=== PATIENT | female | born 1940 | race Caucasian/White ===

== ENCOUNTER 2016-04-05 08:38 | Emergency (ER) | payer OTHER ==
[~2016-04-05] VITALS: Ht 167.6 cm; Wt 74.8 kg
[2016-04-05 08:41] VITALS: BP 155/68; PULSE 80; RESP 16; TEMP 98; O2SAT 95
--- NOTE | 2016-04-05 08:50 | NUR ---
Placed in room 5 To gown for exam. Side rails up.
[2016-04-05] MEDS ORDERED: PHEN100C4 (08:53)
[2016-04-05] MEDS ORDERED: GABA-331 (08:53)
--- NOTE | 2016-04-05 08:53 | NUR ---
pt slipped and fell on last Sunday,c/o back pain. pt A&O x4 ,ambulatory, left side back tenderness.
--- NOTE | 2016-04-05 08:53 | NUR ---
ER at bedside examining patient.
--- NOTE | 2016-04-05 08:54 | NUR ---
Endorsed care to Krystle HUERTA.
[2016-04-05 09:30] VITALS: BP 140/70; PULSE 80; RESP 16; TEMP 98; O2SAT 95
--- NOTE | 2016-04-05 09:32 | NUR ---
Patient given written and verbal discharge instructions and verbalizes understanding. ER MD discussed with patient the results and treatment provided. Patient in stable condition. ID arm band removed. Rx of x 2 norco and lactulose given. Patient educated on pain management and to follow up with PMD. Pain Scale [3/10]. Opportunity for questions provided and answered.
== END 2016-04-05 09:30 | disposition home or self-care (01) ==
LOC: SED 08:38
DX: M54.5 Low back pain (principal); I10 Essential (primary) hypertension
CPT/HCPCS: 99283

== ENCOUNTER 2016-05-01 05:32 | Emergency (ER) | payer OTHER ==
[~2016-05-01] VITALS: Ht 165.1 cm; Wt 77.1 kg
[2016-05-01 05:32] VITALS: BP 188/90; PULSE 68; RESP 20; TEMP 96.9; O2SAT 98
[~2016-05-01 05:32] MED LIST: GABA-331; PHEN100C4
--- NOTE | 2016-05-01 05:35 | NUR ---
Placed in room 07 . Placed on shop blacksmith, blood pressure machine and pulse oximeter. To gown for exam. Side rails up. Report given to BRADLEY Bond.
--- NOTE | 2016-05-01 05:40 | NUR ---
[facility] C/O RIGHT HIP PAIN . DR DARRYL MALONE.
--- NOTE | 2016-05-01 05:56 | NUR ---
ER at bedside examining patient.
[2016-05-01] MEDS ORDERED: ACETAMINOPHEN/CODEINE 300 MG-30 MG TABLET PO ONE (06:15)
--- NOTE | 2016-05-01 07:10 | NUR ---
Assumed care, pt on bedpan for urine specimen collection. Pt having difficulty voiding per report. Pt unable to tolerate straight cath. Continuing to monitor.
[2016-05-01 07:15] LABS: BASOPHILS % (AUTO) 0.1 % (0.0-2.0); EOSINOPHILS # (AUTO) 0.3 K/uL (0.0-0.4); EOSINOPHILS % (AUTO) 2.4 % (0.0-4.0); HEMATOCRIT 32.3 % (36-48); HEMOGLOBIN 10.5 g/dL (12.0-16.0); LYMPHOCYTES # (AUTO) 1.1 K/uL (1.0-5.5); LYMPHOCYTES % (AUTO) 9.7 % (20.5-51.5); MEAN CORPUSCULAR HEMOGLOBIN 28 pg (27-31); MEAN CORPUSCULAR HGB CONC 33 % (32-36); MEAN CORPUSCULAR VOLUME 85 fL (79.0-98.0); MONOCYTES # (AUTO) 0.6 K/uL (0.0-1.0); MONOCYTES % (AUTO) 5.3 % (1.7-9.3); NEUTROPHILS # (AUTO) 9.6 K/uL (1.8-7.7); NEUTROPHILS % (AUTO) 82.5 % (40.0-70.0); PLATELET COUNT (AUTO) 225 K/uL (130-430); RED BLOOD CELL COUNT(AUTO) 3.82 MIL/uL (4.2-6.2); RED CELL DISTRIBUTION WIDTH 15.1 % (9.0-15.0); WHITE BLOOD COUNT (AUTO) 11.6 K/uL (4.8-10.8)
[2016-05-01 07:23] LABS: ANION GAP 8 (5-15); CALCIUM 9.2 mg/dL (8.4-11.0); CHLORIDE 104 mmol/L (98-107); CREATININE 1.34 mg/dL (0.55-1.30); GLUCOSE 93 mg/dL (70-99); POTASSIUM 4.4 mmol/L (3.5-5.1); SODIUM SERUM 138 mmol/L (136-145); UREA NITROGEN, BLOOD 35 mg/dL (8-21)
[2016-05-01 07:28] LABS: ALANINE AMINOTRANSFERASE 28 U/L (12-78); ALBUMIN 3.5 g/dL (3.4-4.8); ASPARTATE AMINOTRANSFERASE 29 U/L (10-37); TOTAL BILIRUBIN 0.2 mg/dL (0.0-1.0)
--- NOTE | 2016-05-01 07:30 | NUR ---
urine specimen collected sent to lab
[2016-05-01 07:33] LABS: PROTHROMBIN TIME 10.5 SECS (9.5-12.5)
--- NOTE | 2016-05-01 07:40 | NUR ---
# 22 gauge angiocath placed to LAC. Use of asceptic technique. Opsite placed over site. Blood return noted. Blood for lab drawn from site. Flushed with 10 cc of normal saline. No evidence of infiltration noted. Patient tolerated well.
[2016-05-01 07:41] LABS: BILIRUBIN,URINE NEGATIVE (NEGATIVE); BLOOD, URINE 1+ (NEGATIVE); CLARITY/URINE CLEAR (CLEAR); COLOR,URINE YELLOW (YELLOW); GLUCOSE,URINE NEGATIVE (NEGATIVE); KETONES,URINE NEGATIVE (NEGATIVE); LEUKOCYTE ESTERASE ,URINE TRACE (NEGATIVE); NITRITE, URINE NEGATIVE (NEGATIVE); PH,URINE 5.5 (5.0-8.0); PROTEIN URINE NEGATIVE (NEGATIVE); UROBILINOGEN,URINE 0.2 (0.2-1.0)
--- NOTE | 2016-05-01 07:51 | NUR ---
Patient transported to radiology via gurney, accompanied by rad staff.
[2016-05-01] MEDS ORDERED: cefTRIAXone 1 GM IVPB PREMIX 50 ML IV ONE (08:15)
--- NOTE | 2016-05-01 08:15 | NUR ---
Pt returned from rad dept. Pt tolerated well.
[2016-05-01 08:28] LABS: BACTERIA,URINE FEW /HPF (None Seen); MUCUS,URINE 1+ /LPF (None Seen)
[2016-05-01] MEDS ORDERED: ONDANSETRON 4 MG ODT TAB PO ONE (08:30)
[2016-05-01] MEDS ORDERED: MORPHINE 2 MG/ML INJ. SYRINGE IVP ONE ×2 (08:30→13:30)
--- NOTE | 2016-05-01 08:33 | NUR ---
Pt medicated tolerated well.
[2016-05-01] MEDS ORDERED: ZOLP5TAB2 PO (09:15)
[2016-05-01] MEDS ORDERED: HYDR25TA4 PO (09:16)
[2016-05-01] MEDS ORDERED: CEL20 PO (09:16)
--- NOTE | 2016-05-01 09:30 | NUR ---
Pt's son at bedside w/ Dr. Yarbrough for POC.
--- NOTE | 2016-05-01 09:50 | NUR ---
Pt unable to tolerate standing. Dr. Yarbrough aware.
--- NOTE | 2016-05-01 10:15 | NUR ---
Pt to be transferred to [facility] awaiting call back for room assignment.
[2016-05-01] MEDS ORDERED: ZONI100C16 PO (11:30)
[2016-05-01] MEDS ORDERED: TEMA15CA51 PO (11:30)
--- NOTE | 2016-05-01 12:15 | NUR ---
[facility] awaiting transfer info for report.
--- NOTE | 2016-05-01 13:20 | NUR ---
Pt given afternoon tray .
--- NOTE | 2016-05-01 13:24 | NUR ---
Pt on stable condition, VSS, resting at this time
[2016-05-01] MEDS ORDERED: ONDANSETRON HCL 4 MG/2 ML VIAL IVP ONE (13:30)
--- NOTE | 2016-05-01 13:35 | NUR ---
Patient to be transferred to [facility]. Is being transferred due to higher level of care. Receiving facility has accepting physician and available space. ER physician has signed transfer form. Patient or responsible republican has agreed to transfer and signed form. Patient belongings inventoried and will be sent with patient. Copy of nursing notes, lab reports, EKG, Physicians Orders and X-rays to be sent with patient. Report called to strategy consultant at receiving facility. Receiving physician is . [facility] has been called for transfer. ETA is [id number].
[2016-05-01 14:15] VITALS: BP 169/88; PULSE 65; RESP 18; TEMP 97.4; O2SAT 97
== END 2016-05-01 14:15 | disposition home or self-care (01) ==
LOC: SED 05:32
DX: M54.5 Low back pain (principal); D64.9 Anemia, unspecified; I10 Essential (primary) hypertension; K21.9 Gastro-esophageal reflux disease without esophagitis; Z86.79 Personal history of other diseases of the circulatory system; Z88.8 Allergy status to other drugs, medicaments and biological substances
CPT/HCPCS: 36415; 70450; 71010; 72131; 72170; 72192; 73510; 80053; 81000; 84484; 85025; 85610; 87086; 93005; 96365; 96375; 96376; 99285; J0696; J2270; J2405; Q0162

== ENCOUNTER 2016-08-17 18:04 | Inpatient (IN) | payer OTHER ==
[~2016-08-17] VITALS: Ht 170.2 cm; Wt 70.8 kg
[2016-08-17 18:04] VITALS: BP_SYST 149
[~2016-08-17 18:04] MED LIST changes: +CEL20 PO; -GABA-331; +HYDR25TA4 PO; -PHEN100C4; +TEMA15CA51 PO; +ZOLP5TAB2 PO; +ZONI100C16 PO
[2016-08-17 18:22] LABS: BASOPHILS % (AUTO) 0.4 % (0.0-2.0); EOSINOPHILS # (AUTO) 0.3 K/uL (0.0-0.4); LYMPHOCYTES # (AUTO) 2.1 K/uL (1.0-5.5); MEAN CORPUSCULAR VOLUME 72 fL (79.0-98.0); NEUTROPHILS # (AUTO) 4.3 K/uL (1.8-7.7)
[2016-08-17 18:25] LABS: EOSINOPHILS % (AUTO) 3.9 % (0.0-4.0); LYMPHOCYTES % (AUTO) 28.3 % (20.5-51.5); MEAN CORPUSCULAR HEMOGLOBIN 22 pg (27-31); MEAN CORPUSCULAR HGB CONC 31 % (32-36); MONOCYTES # (AUTO) 0.7 K/uL (0.0-1.0); MONOCYTES % (AUTO) 9.2 % (1.7-9.3); NEUTROPHILS % (AUTO) 58.2 % (40.0-70.0); PLATELET COUNT (AUTO) 510 K/uL (130-430); RED BLOOD CELL COUNT(AUTO) 2.87 MIL/uL (4.2-6.2); WHITE BLOOD COUNT (AUTO) 7.4 K/uL (4.8-10.8)
[2016-08-17 18:27] LABS: HEMOGLOBIN 6.4 g/dL (12.0-16.0)
[2016-08-17 18:28] LABS: HEMATOCRIT 20.7 % (36-48)
[2016-08-17 18:34] LABS: INR 0.9 (0.8-1.2); PROTHROMBIN TIME 10.3 SECS (9.5-12.5)
[2016-08-17 18:45] LABS: ANION GAP 8 (5-15); CALCIUM 8.8 mg/dL (8.4-11.0); CHLORIDE 105 mmol/L (98-107); CREATININE 1.44 mg/dL (0.55-1.30); GLUCOSE 84 mg/dL (70-99); POTASSIUM 4.4 mmol/L (3.5-5.1); SODIUM SERUM 137 mmol/L (136-145); UREA NITROGEN, BLOOD 30 mg/dL (8-21)
[2016-08-17 18:50] LABS: ALANINE AMINOTRANSFERASE 15 U/L (12-78); ALBUMIN 3.5 g/dL (3.4-4.8); ASPARTATE AMINOTRANSFERASE 17 U/L (10-37); TOTAL BILIRUBIN 0.2 mg/dL (0.0-1.0); TOTAL PROTEIN, SERUM 7.2 g/dL (6.4-8.3)
[2016-08-17] MEDS: CITALOPRAM HYDROBROMIDE 20 MG TABLET PO SCH (20:15)
[2016-08-17] MEDS ORDERED: TEMAZEPAM 15 MG CAPSULE PO SCH (20:15)
[2016-08-17] MEDS ORDERED: BENA20TA2 PO (20:26)
[2016-08-17 20:39] VITALS: BP_SYST 146
[2016-08-17] MEDS ORDERED: CITALOPRAM HYDROBROMIDE 20 MG TABLET PO ONE (22:00)
[2016-08-17] MEDS ORDERED: PANTOPRAZOLE SODIUM 40 MG TAB PO ONE (22:00)
[2016-08-17] MEDS: ZOLPIDEM TARTRATE 5 MG TABLET PO SCH (22:04)
[2016-08-17] MEDS: ZONISAMIDE 100 MG CAPSULE PO SCH (22:04)
[2016-08-18 00:02] VITALS: BP_SYST 132
[2016-08-18 03:04] VITALS: BP_SYST 121
[2016-08-18 07:45] LABS: BASOPHILS % (AUTO) 0.5 % (0.0-2.0); EOSINOPHILS # (AUTO) 0.3 K/uL (0.0-0.4); EOSINOPHILS % (AUTO) 4.7 % (0.0-4.0); HEMATOCRIT 29.1 % (36-48); HEMOGLOBIN 9.2 g/dL (12.0-16.0); LYMPHOCYTES # (AUTO) 1.5 K/uL (1.0-5.5); LYMPHOCYTES % (AUTO) 22.4 % (20.5-51.5); MEAN CORPUSCULAR HEMOGLOBIN 25 pg (27-31); MEAN CORPUSCULAR HGB CONC 32 % (32-36); MEAN CORPUSCULAR VOLUME 79 fL (79.0-98.0); MONOCYTES # (AUTO) 0.6 K/uL (0.0-1.0); MONOCYTES % (AUTO) 9.1 % (1.7-9.3); NEUTROPHILS # (AUTO) 4.4 K/uL (1.8-7.7); NEUTROPHILS % (AUTO) 63.3 % (40.0-70.0); PLATELET COUNT (AUTO) 417 K/uL (130-430); RED BLOOD CELL COUNT(AUTO) 3.71 MIL/uL (4.2-6.2); RED CELL DISTRIBUTION WIDTH 19.9 % (9.0-15.0); WHITE BLOOD COUNT (AUTO) 6.8 K/uL (4.8-10.8)
[2016-08-18 08:00] VITALS: BP_SYST 134
[2016-08-18 08:01] LABS: IRON (SERUM) 140 mcg/dL (37-145); TOTAL IRON BIND. CAPACITY 379 ug/dL (250-450)
[2016-08-18 08:07] LABS: ALANINE AMINOTRANSFERASE 15 U/L (12-78); ALBUMIN 3.2 g/dL (3.4-4.8); ANION GAP 5 (5-15); ASPARTATE AMINOTRANSFERASE 21 U/L (10-37); CALCIUM 8.3 mg/dL (8.4-11.0); CHLORIDE 106 mmol/L (98-107); CREATININE 1.33 mg/dL (0.55-1.30); GLUCOSE 87 mg/dL (70-99); POTASSIUM 4.4 mmol/L (3.5-5.1); SODIUM SERUM 136 mmol/L (136-145); THYROID STIMULATING HORMONE 0.82 uIu/mL (0.34-4.82); TOTAL BILIRUBIN 0.8 mg/dL (0.0-1.0); TOTAL PROTEIN, SERUM 6.6 g/dL (6.4-8.3); UREA NITROGEN, BLOOD 26 mg/dL (8-21)
[2016-08-18 10:52] VITALS: BP_SYST 134
[2016-08-18] MEDS: PANTOPRAZOLE SODIUM 40 MG TAB PO SCH (13:38)
[2016-08-18] MEDS: ZONISAMIDE 100 MG CAPSULE PO SCH (13:38)
[2016-08-18] MEDS: CITALOPRAM HYDROBROMIDE 20 MG TABLET PO SCH (13:39)
[2016-08-18] MEDS: BENAZEPRIL HCL 20 MG TABLET (LOTENSIN) PO SCH (13:39)
[2016-08-18 16:25] VITALS: BP_SYST 134
[2016-08-18 19:44] VITALS: BP_SYST 128
[2016-08-18] MEDS: ZOLPIDEM TARTRATE 5 MG TABLET PO SCH (21:22)
[2016-08-19 04:00] VITALS: BP_SYST 128
[2016-08-19 06:58] LABS: BASOPHILS % (AUTO) 0.4 % (0.0-2.0); EOSINOPHILS # (AUTO) 0.4 K/uL (0.0-0.4); EOSINOPHILS % (AUTO) 5.2 % (0.0-4.0); HEMATOCRIT 30.4 % (36-48); HEMOGLOBIN 9.9 g/dL (12.0-16.0); LYMPHOCYTES # (AUTO) 1.7 K/uL (1.0-5.5); LYMPHOCYTES % (AUTO) 22.9 % (20.5-51.5); MEAN CORPUSCULAR HEMOGLOBIN 26 pg (27-31); MEAN CORPUSCULAR HGB CONC 33 % (32-36); MEAN CORPUSCULAR VOLUME 79 fL (79.0-98.0); MONOCYTES # (AUTO) 0.7 K/uL (0.0-1.0); MONOCYTES % (AUTO) 9.1 % (1.7-9.3); NEUTROPHILS # (AUTO) 4.4 K/uL (1.8-7.7); NEUTROPHILS % (AUTO) 62.4 % (40.0-70.0); PLATELET COUNT (AUTO) 437 K/uL (130-430); RED BLOOD CELL COUNT(AUTO) 3.86 MIL/uL (4.2-6.2); RED CELL DISTRIBUTION WIDTH 19.6 % (9.0-15.0); WHITE BLOOD COUNT (AUTO) 7.2 K/uL (4.8-10.8)
[2016-08-19 08:00] VITALS: BP_SYST 122
[2016-08-19] MEDS: CITALOPRAM HYDROBROMIDE 20 MG TABLET PO SCH (08:52)
[2016-08-19] MEDS: PANTOPRAZOLE SODIUM 40 MG TAB PO SCH (08:52)
[2016-08-19] MEDS: BENAZEPRIL HCL 20 MG TABLET (LOTENSIN) PO SCH (08:52)
[2016-08-19] MEDS: ZONISAMIDE 100 MG CAPSULE PO SCH (08:54)
[2016-08-19 12:21] VITALS: BP_SYST 132
[2016-08-19 16:56] VITALS: BP_SYST 126
[2016-08-19 19:30] VITALS: BP_SYST 132
[2016-08-19] MEDS: ZOLPIDEM TARTRATE 5 MG TABLET PO SCH (21:03)
[2016-08-20 00:33] VITALS: BP_SYST 125
[2016-08-20 03:16] VITALS: BP_SYST 127
[2016-08-20] MEDS: BENAZEPRIL HCL 20 MG TABLET (LOTENSIN) PO SCH (08:19)
[2016-08-20] MEDS: CITALOPRAM HYDROBROMIDE 20 MG TABLET PO SCH (08:19)
[2016-08-20] MEDS: PANTOPRAZOLE SODIUM 40 MG TAB PO SCH (08:19)
[2016-08-20] MEDS: ZONISAMIDE 100 MG CAPSULE PO SCH (08:19)
[2016-08-20 08:20] VITALS: BP_SYST 137
[2016-08-20 11:45] VITALS: BP_SYST 130
[2016-08-20 16:28] VITALS: BP_SYST 135
[2016-08-20 19:52] VITALS: BP_SYST 145
[2016-08-20] MEDS: ZOLPIDEM TARTRATE 5 MG TABLET PO SCH (20:53)
[2016-08-21] VITALS (7 sets, daily range): BP systolic 105–144
[2016-08-21 07:00] LABS: BASOPHILS % (AUTO) 0.5 % (0.0-2.0); EOSINOPHILS # (AUTO) 0.4 K/uL (0.0-0.4); EOSINOPHILS % (AUTO) 5.6 % (0.0-4.0); HEMATOCRIT 31.2 % (36-48); HEMOGLOBIN 9.8 g/dL (12.0-16.0); LYMPHOCYTES # (AUTO) 1.7 K/uL (1.0-5.5); LYMPHOCYTES % (AUTO) 22.7 % (20.5-51.5); MEAN CORPUSCULAR HEMOGLOBIN 25 pg (27-31); MEAN CORPUSCULAR HGB CONC 32 % (32-36); MEAN CORPUSCULAR VOLUME 79 fL (79.0-98.0); MONOCYTES # (AUTO) 0.8 K/uL (0.0-1.0); MONOCYTES % (AUTO) 10.5 % (1.7-9.3); NEUTROPHILS # (AUTO) 4.5 K/uL (1.8-7.7); NEUTROPHILS % (AUTO) 60.7 % (40.0-70.0); PLATELET COUNT (AUTO) 417 K/uL (130-430); RED BLOOD CELL COUNT(AUTO) 3.94 MIL/uL (4.2-6.2); RED CELL DISTRIBUTION WIDTH 21.7 % (9.0-15.0); WHITE BLOOD COUNT (AUTO) 7.4 K/uL (4.8-10.8)
[2016-08-21] MEDS: BENAZEPRIL HCL 20 MG TABLET (LOTENSIN) PO SCH (09:40)
[2016-08-21] MEDS: PANTOPRAZOLE SODIUM 40 MG TAB PO SCH (09:40)
[2016-08-21] MEDS: CITALOPRAM HYDROBROMIDE 20 MG TABLET PO SCH (09:41)
[2016-08-21] MEDS: ZONISAMIDE 100 MG CAPSULE PO SCH (10:22)
== END 2016-08-21 15:45 | disposition home or self-care (01) | DRG 884 ==
LOC: SED 18:04 → STU 19:59 → SMU 08-21 11:41
PROVIDERS: ADMIT Family Medicine; ATTEND Family Medicine
PROC: 30233N1 Transfusion of Nonautologous Red Blood Cells into Peripheral Vein, Percutaneous Approach (ICD-10-PCS; principal; 2016-08-17)
DX: F03.90 Unspecified dementia, unspecified severity, without behavioral disturbance, psychotic disturbance, mood disturbance, and anxiety (principal); R47.01 Aphasia; D50.9 Iron deficiency anemia, unspecified; I10 Essential (primary) hypertension; G40.909 Epilepsy, unspecified, not intractable, without status epilepticus; F32.9 Major depressive disorder, single episode, unspecified; G47.00 Insomnia, unspecified; F41.9 Anxiety disorder, unspecified; R47.1 Dysarthria and anarthria; Z88.8 Allergy status to other drugs, medicaments and biological substances; Z79.899 Other long term (current) drug therapy
CPT/HCPCS: 36415; 70450-TC; 71010; 80053; 82607; 82728; 83540-TC; 83550-TC; 84443-TC; 84484; 85025; 85610-TC; 85730-TC; 86886; 86900; 86901; 86920; 86945-TC; 93005; 97110-GP; 97116-GP; 97530-GP; 99285; J7050; P9021

== ENCOUNTER 2016-11-28 22:58 | Emergency (ER) | payer OTHER ==
[~2016-11-28] VITALS: Ht 167.6 cm; Wt 74.8 kg
[~2016-11-28 22:58] MED LIST changes: +BENA20TA2 PO; -HYDR25TA4 PO; -TEMA15CA51 PO
--- NOTE | 2016-11-28 22:59 | NUR ---
Patient to ER bed 3 to gown for evaluation. Side rails up. Report given to Jovana HUERTA.
[2016-11-28 23:00] VITALS: BP_SYST 125
--- NOTE | 2016-11-28 23:20 | NUR ---
BLU Carmona at bedside examining patient.
[2016-11-28] MEDS ORDERED: NACL 0.9% 1,000 ML IV ONE (23:30)
--- NOTE | 2016-11-28 23:30 | NUR ---
Pt states she has low back pain 8/10 and burning sensation while peeing since 0600 today. No N/V/D. No MARIN or dizziness. Afebrile. Safety precautions in place, will continue to monitor.
[2016-11-29] MEDS ORDERED: MORPHINE 4 MG/ML INJ. SYRINGE IVP ONE (00:30)
[2016-11-29] MEDS ORDERED: ONDANSETRON HCL 4 MG/2 ML VIAL IVP ONE (00:45)
[2016-11-29] MEDS ORDERED: NACL 0.9% 1,000 ML IV ONE (01:30)
[2016-11-29] MEDS ORDERED: NITROFURANTOIN MONOHYD/M-CRYST 100 MG CAPSULE PO ONE (01:30)
[2016-11-29] MEDS ORDERED: ZONI100C16 PO (02:48)
[2016-11-29] MEDS ORDERED: MYCOLOG30 TP (02:48)
[2016-11-29] MEDS ORDERED: CITA40TA22 PO (02:48)
[2016-11-29] MEDS ORDERED: BENA20TA2 PO (02:48)
--- NOTE | 2016-11-29 02:48 | NUR ---
Medication reconciliation completed with information provided by [facility]. Any prior medication reconciliation on file was reviewed and corrected.
[2016-11-29 03:15] LABS: BASOPHILS % (AUTO) 0.4 % (0.0-2.0); EOSINOPHILS # (AUTO) 0.5 K/uL (0.0-0.4); EOSINOPHILS % (AUTO) 5.6 % (0.0-4.0); HEMATOCRIT 24.5 % (36-48); HEMOGLOBIN 7.8 g/dL (12.0-16.0); LYMPHOCYTES # (AUTO) 1.8 K/uL (1.0-5.5); LYMPHOCYTES % (AUTO) 20.8 % (20.5-51.5); MEAN CORPUSCULAR HEMOGLOBIN 26 pg (27-31); MEAN CORPUSCULAR HGB CONC 32 % (32-36); MEAN CORPUSCULAR VOLUME 80 fL (79.0-98.0); MONOCYTES # (AUTO) 0.7 K/uL (0.0-1.0); NEUTROPHILS # (AUTO) 5.6 K/uL (1.8-7.7); NEUTROPHILS % (AUTO) 65.2 % (40.0-70.0); PLATELET COUNT (AUTO) 307 K/uL (130-430); RED BLOOD CELL COUNT(AUTO) 3.05 MIL/uL (4.2-6.2); RED CELL DISTRIBUTION WIDTH 15.2 % (9.0-15.0); WHITE BLOOD COUNT (AUTO) 8.6 K/uL (4.8-10.8)
[2016-11-29 03:21] LABS: ANION GAP 6 (5-15); CALCIUM 8.5 mg/dL (8.4-11.0); CHLORIDE 112 mmol/L (98-107); CREATININE 1.09 mg/dL (0.55-1.30); GLUCOSE 92 mg/dL (70-99); SODIUM SERUM 140 mmol/L (136-145); UREA NITROGEN, BLOOD 40 mg/dL (8-21)
[2016-11-29 03:26] LABS: ALANINE AMINOTRANSFERASE 12 U/L (12-78); ALBUMIN 3.3 g/dL (3.4-4.8); ASPARTATE AMINOTRANSFERASE 15 U/L (10-37); TOTAL BILIRUBIN 0.2 mg/dL (0.0-1.0)
[2016-11-29 04:20] LABS: BILIRUBIN,URINE NEGATIVE (NEGATIVE); BLOOD, URINE NEGATIVE (NEGATIVE); CLARITY/URINE CLEAR (CLEAR); COLOR,URINE YELLOW (YELLOW); GLUCOSE,URINE NEGATIVE (NEGATIVE); KETONES,URINE NEGATIVE (NEGATIVE); LEUKOCYTE ESTERASE ,URINE 1+ (NEGATIVE); NITRITE, URINE NEGATIVE (NEGATIVE); PH,URINE 6.5 (5.0-8.0); PROTEIN URINE NEGATIVE (NEGATIVE); UROBILINOGEN,URINE 0.2 (0.2-1.0)
[2016-11-29 04:25] LABS: BACTERIA,URINE FEW /HPF (None Seen); RBC,URINE 0-3 /HPF (0-3)
[2016-11-29 05:30] VITALS: BP_SYST 120
--- NOTE | 2016-11-29 05:30 | NUR ---
Patient given written and verbal discharge instructions and verbalizes understanding. ER MD Dr. Carmona discussed with patient the results and treatment provided. Patient in stable condition. ID arm band removed. IV catheter removed intact and dressing applied, no active bleeding. Rx of Desitin rapid relief topical cream and Macrobid given. Patient educated on pain management and to follow up with PMD. Pain Scale 1/10, ambulated w/ steady gait. Opportunity for questions provided and answered.
--- NOTE | 2016-12-01 13:27 | NUR ---
Recieved positive culture results for urine with multiple organisms. Pt recieved RX for macrobid which is resistant to one organism. Dr. Mejia changed RX to Bactrim DS BID #[id number]. Spoke with Massiel at [facility], results and prescription faxed to [phone]
== END 2016-11-29 05:30 | disposition home or self-care (01) ==
LOC: SED 22:58
DX: N39.0 Urinary tract infection, site not specified (principal); E86.0 Dehydration; L22 Diaper dermatitis; I10 Essential (primary) hypertension; Z88.8 Allergy status to other drugs, medicaments and biological substances; Z79.899 Other long term (current) drug therapy
CPT/HCPCS: 36415; 80053; 81000; 83605; 85025; 87086; 87186; 96361; 96374; 96375; 99285; J2270; J2405; J7030 ×2

== ENCOUNTER 2017-04-05 21:15 | Inpatient (IN) | payer OTHER ==
[~2017-04-05] VITALS: Ht 167.6 cm; Wt 68.0 kg
[~2017-04-05 21:15] MED LIST changes: +CITA40TA22 PO; +MYCOLOG30 TP
[2017-04-05 21:20] VITALS: BP_SYST 150
[2017-04-05] MEDS ORDERED: CITA40TA22 PO (21:35)
[2017-04-05] MEDS ORDERED: NS 500 ML IV ONE (21:45)
[2017-04-05 22:24] LABS: BASOPHILS % (AUTO) 0.5 % (0.0-2.0); EOSINOPHILS # (AUTO) 0.4 K/uL (0.0-0.4); EOSINOPHILS % (AUTO) 6.9 % (0.0-4.0); HEMOGLOBIN 7.9 g/dL (12.0-16.0); LYMPHOCYTES # (AUTO) 1.9 K/uL (1.0-5.5); LYMPHOCYTES % (AUTO) 30.1 % (20.5-51.5); MEAN CORPUSCULAR HEMOGLOBIN 25 pg (27-31); MEAN CORPUSCULAR HGB CONC 32 % (32-36); MEAN CORPUSCULAR VOLUME 77 fL (79.0-98.0); MONOCYTES # (AUTO) 0.7 K/uL (0.0-1.0); MONOCYTES % (AUTO) 10.8 % (1.7-9.3); NEUTROPHILS # (AUTO) 3.4 K/uL (1.8-7.7); NEUTROPHILS % (AUTO) 51.7 % (40.0-70.0); PLATELET COUNT (AUTO) 366 K/uL (130-430); RED BLOOD CELL COUNT(AUTO) 3.23 MIL/uL (4.2-6.2); WHITE BLOOD COUNT (AUTO) 6.4 K/uL (4.8-10.8)
[2017-04-05 22:38] LABS: ANION GAP 6 (5-15); CALCIUM 9.3 mg/dL (8.4-11.0); CHLORIDE 105 mmol/L (98-107); GLUCOSE 85 mg/dL (70-99); POTASSIUM 4.6 mmol/L (3.5-5.1); SODIUM SERUM 135 mmol/L (136-145); UREA NITROGEN, BLOOD 32 mg/dL (8-21)
[2017-04-05 22:42] LABS: PROTHROMBIN TIME 9.9 SECS (9.5-12.5)
[2017-04-05 22:43] LABS: ALANINE AMINOTRANSFERASE 19 U/L (12-78); ALBUMIN 3.5 g/dL (3.4-4.8); ASPARTATE AMINOTRANSFERASE 19 U/L (10-37); TOTAL BILIRUBIN 0.1 mg/dL (0.0-1.0)
[2017-04-05 23:52] VITALS: BP_SYST 117
[2017-04-06] VITALS: BP_SYST 117
[2017-04-06] MEDS: D5NS 1,000 ML IV SCH ×2 (01:27→14:59)
[2017-04-06 07:25] LABS: BASOPHILS % (AUTO) 0.4 % (0.0-2.0); EOSINOPHILS # (AUTO) 0.4 K/uL (0.0-0.4); EOSINOPHILS % (AUTO) 6.9 % (0.0-4.0); HEMATOCRIT 23.6 % (36-48); HEMOGLOBIN 7.5 g/dL (12.0-16.0); LYMPHOCYTES # (AUTO) 1.5 K/uL (1.0-5.5); LYMPHOCYTES % (AUTO) 24.4 % (20.5-51.5); MEAN CORPUSCULAR HEMOGLOBIN 25 pg (27-31); MEAN CORPUSCULAR HGB CONC 32 % (32-36); MEAN CORPUSCULAR VOLUME 77 fL (79.0-98.0); MONOCYTES # (AUTO) 0.7 K/uL (0.0-1.0); MONOCYTES % (AUTO) 11.7 % (1.7-9.3); NEUTROPHILS # (AUTO) 3.4 K/uL (1.8-7.7); NEUTROPHILS % (AUTO) 56.6 % (40.0-70.0); PLATELET COUNT (AUTO) 329 K/uL (130-430); RED BLOOD CELL COUNT(AUTO) 3.06 MIL/uL (4.2-6.2)
[2017-04-06 07:47] LABS: ALANINE AMINOTRANSFERASE 16 U/L (12-78); ALBUMIN 3.1 g/dL (3.4-4.8); ANION GAP 3 (5-15); ASPARTATE AMINOTRANSFERASE 17 U/L (10-37); CALCIUM 8.7 mg/dL (8.4-11.0); CHLORIDE 110 mmol/L (98-107); CREATININE 1.12 mg/dL (0.55-1.30); GLUCOSE 94 mg/dL (70-99); PHOSPHORUS 2.8 mg/dL (2.7-4.5); POTASSIUM 4.6 mmol/L (3.5-5.1); SODIUM SERUM 140 mmol/L (136-145); UREA NITROGEN, BLOOD 27 mg/dL (8-21)
[2017-04-06 08:20] VITALS: BP_SYST 128
[2017-04-06 08:29] LABS: TOTAL BILIRUBIN 0.1 mg/dL (0.0-1.0)
[2017-04-06 09:18] LABS: TOTAL IRON BIND. CAPACITY 400 ug/dL (250-450)
[2017-04-06] MEDS ORDERED: POTASSIUM CHLORIDE 20 MEQ TAB.PRT.SR PO PRN (11:45)
[2017-04-06] MEDS ORDERED: SIMETHICONE 80 MG TAB.CHEW PO PRN (11:45)
[2017-04-06] MEDS ORDERED: HYDROcodone/ACETAMIN 10-325 MG TAB PO PRN (11:45)
[2017-04-06] MEDS ORDERED: MORPHINE 2 MG/ML INJ. SYRINGE IVP PRN (11:45)
[2017-04-06] MEDS ORDERED: ONDANSETRON HCL 4 MG/2 ML VIAL IM PRN (11:45)
[2017-04-06] MEDS ORDERED: LORazepam 2 MG/ML VIAL IVP PRN (11:45)
[2017-04-06] MEDS ORDERED: BISACODYL 10 MG/SUPPOSITORY RC PRN (11:45)
[2017-04-06 11:49] VITALS: BP_SYST 127
[2017-04-06] MEDS ORDERED: GOLYTELY / COLYTE SOLUTION 4 LITERS PO ONE ×2 (13:00→18:00)
[2017-04-06] MEDS ORDERED: BISACODYL 5 MG TABLET.DR (DULCOLAX) PO ONE (17:00)
[2017-04-06 18:00] VITALS: BP_SYST 123
[2017-04-06] MEDS ORDERED: MAGNESIUM CITRATE 300 ML ORAL SOLUTION PO ONE (19:00)
[2017-04-06 19:25] VITALS: BP_SYST 91
[2017-04-06] MEDS: PANTOPRAZOLE SODIUM 40 MG/VIAL (PROTONIX) IVP SCH (20:33)
[2017-04-06] MEDS: LACTULOSE 20 GM/30 ML UDC PO SCH (20:33)
[2017-04-06] MEDS: CITALOPRAM HYDROBROMIDE 20 MG TABLET PO SCH (20:33)
[2017-04-06] MEDS: BENAZEPRIL HCL 20 MG TABLET (LOTENSIN) PO SCH (20:34)
[2017-04-06] MEDS: ZONISAMIDE 100 MG CAPSULE PO SCH (20:34)
[2017-04-06] MEDS ORDERED: ZOLPIDEM TARTRATE 5 MG TABLET PO PRN (21:00)
[2017-04-07 00:24] VITALS: BP_SYST 136
[2017-04-07 04:24] VITALS: BP_SYST 141
[2017-04-07] MEDS ORDERED: MILK OF MAGNESIA 30 ML UDC PO PRN (05:15)
[2017-04-07] MEDS: D5NS 1,000 ML IV SCH ×2 (06:20→21:47)
[2017-04-07 07:23] LABS: BASOPHILS % (AUTO) 0.3 % (0.0-2.0); EOSINOPHILS # (AUTO) 0.4 K/uL (0.0-0.4); EOSINOPHILS % (AUTO) 5.5 % (0.0-4.0); HEMATOCRIT 24.8 % (36-48); HEMOGLOBIN 7.9 g/dL (12.0-16.0); LYMPHOCYTES # (AUTO) 1.4 K/uL (1.0-5.5); LYMPHOCYTES % (AUTO) 18.4 % (20.5-51.5); MEAN CORPUSCULAR HEMOGLOBIN 25 pg (27-31); MEAN CORPUSCULAR HGB CONC 32 % (32-36); MEAN CORPUSCULAR VOLUME 78 fL (79.0-98.0); MONOCYTES # (AUTO) 0.7 K/uL (0.0-1.0); MONOCYTES % (AUTO) 9.2 % (1.7-9.3); NEUTROPHILS # (AUTO) 5.3 K/uL (1.8-7.7); NEUTROPHILS % (AUTO) 66.6 % (40.0-70.0); PLATELET COUNT (AUTO) 373 K/uL (130-430); RED BLOOD CELL COUNT(AUTO) 3.17 MIL/uL (4.2-6.2); RED CELL DISTRIBUTION WIDTH 15.9 % (9.0-15.0); WHITE BLOOD COUNT (AUTO) 7.8 K/uL (4.8-10.8)
[2017-04-07 07:42] LABS: ANION GAP 6 (5-15); CALCIUM 8.7 mg/dL (8.4-11.0); CHLORIDE 108 mmol/L (98-107); CREATININE 1.17 mg/dL (0.55-1.30); GLUCOSE 98 mg/dL (70-99); PHOSPHORUS 2.7 mg/dL (2.7-4.5); POTASSIUM 4.3 mmol/L (3.5-5.1); SODIUM SERUM 140 mmol/L (136-145); UREA NITROGEN, BLOOD 22 mg/dL (8-21)
[2017-04-07 08:00] VITALS: BP_SYST 137
[2017-04-07 08:35] LABS: PROTHROMBIN TIME 9.8 SECS (9.5-12.5)
[2017-04-07] MEDS: PANTOPRAZOLE SODIUM 40 MG/VIAL (PROTONIX) IVP SCH ×2 (09:31→21:33)
[2017-04-07] MEDS: DOCUSATE SODIUM 250 MG CAPSULE PO SCH ×2 (09:31→21:33)
[2017-04-07] MEDS: LACTULOSE 20 GM/30 ML UDC PO SCH ×2 (09:31→21:33)
[2017-04-07 11:51] VITALS: BP_SYST 126
[2017-04-07 16:19] VITALS: BP_SYST 118
[2017-04-07 17:26] LABS: BASOPHILS % (AUTO) 0.2 % (0.0-2.0); EOSINOPHILS # (AUTO) 0.4 K/uL (0.0-0.4); EOSINOPHILS % (AUTO) 5.8 % (0.0-4.0); HEMATOCRIT 24.5 % (36-48); HEMOGLOBIN 7.6 g/dL (12.0-16.0); LYMPHOCYTES # (AUTO) 1.3 K/uL (1.0-5.5); MEAN CORPUSCULAR HEMOGLOBIN 24 pg (27-31); MEAN CORPUSCULAR HGB CONC 31 % (32-36); MEAN CORPUSCULAR VOLUME 78 fL (79.0-98.0); MONOCYTES # (AUTO) 0.7 K/uL (0.0-1.0); MONOCYTES % (AUTO) 10.7 % (1.7-9.3); NEUTROPHILS % (AUTO) 63.3 % (40.0-70.0); PLATELET COUNT (AUTO) 323 K/uL (130-430); RED BLOOD CELL COUNT(AUTO) 3.15 MIL/uL (4.2-6.2); RED CELL DISTRIBUTION WIDTH 15.6 % (9.0-15.0); WHITE BLOOD COUNT (AUTO) 6.4 K/uL (4.8-10.8)
[2017-04-07] MEDS ORDERED: GOLYTELY / COLYTE SOLUTION 4 LITERS PO ONE (18:00)
[2017-04-07 20:00] VITALS: BP_SYST 122
[2017-04-07] MEDS: CITALOPRAM HYDROBROMIDE 20 MG TABLET PO SCH (21:34)
[2017-04-07] MEDS: BENAZEPRIL HCL 20 MG TABLET (LOTENSIN) PO SCH (21:34)
[2017-04-07] MEDS: ZONISAMIDE 100 MG CAPSULE PO SCH (21:34)
[2017-04-08] VITALS (8 sets, daily range): BP systolic 105–138
[2017-04-08] MEDS ORDERED: MAGNESIUM CITRATE 300 ML ORAL SOLUTION PO ONE (01:15)
[2017-04-08] MEDS ORDERED: SIMETHICONE 40 MG/0.6 ML ML ONE (06:09)
[2017-04-08] MEDS: fentaNYL CITRATE/PF 100 MCG/2 ML AMP ONE ×3 (06:46→07:03)
[2017-04-08] MEDS: MIDAZOLAM HCL 5 MG/5 ML VIAL ONE ×6 (06:46→07:21)
[2017-04-08] MEDS: LACTULOSE 20 GM/30 ML UDC PO SCH ×2 (09:00→20:49)
[2017-04-08] MEDS: DOCUSATE SODIUM 250 MG CAPSULE PO SCH ×2 (09:00→20:49)
[2017-04-08] MEDS ORDERED: GASTROGRAFIN 120 ML ONE (09:34)
[2017-04-08] MEDS: PANTOPRAZOLE SODIUM 40 MG/VIAL (PROTONIX) IVP SCH ×2 (11:36→20:49)
[2017-04-08] MEDS: CITALOPRAM HYDROBROMIDE 20 MG TABLET PO SCH (20:49)
[2017-04-08] MEDS: ZONISAMIDE 100 MG CAPSULE PO SCH (20:50)
[2017-04-08] MEDS: BENAZEPRIL HCL 20 MG TABLET (LOTENSIN) PO SCH (20:50)
[2017-04-09] MEDS: D5NS 1,000 ML IV SCH ×2 (04:35→06:57)
[2017-04-09 07:21] LABS: BASOPHILS % (AUTO) 0.2 % (0.0-2.0); EOSINOPHILS # (AUTO) 0.4 K/uL (0.0-0.4); EOSINOPHILS % (AUTO) 6.5 % (0.0-4.0); LYMPHOCYTES # (AUTO) 1.3 K/uL (1.0-5.5); LYMPHOCYTES % (AUTO) 20.3 % (20.5-51.5); MEAN CORPUSCULAR HEMOGLOBIN 25 pg (27-31); MEAN CORPUSCULAR HGB CONC 31 % (32-36); MEAN CORPUSCULAR VOLUME 78 fL (79.0-98.0); MONOCYTES # (AUTO) 0.6 K/uL (0.0-1.0); MONOCYTES % (AUTO) 9.9 % (1.7-9.3); NEUTROPHILS # (AUTO) 4.1 K/uL (1.8-7.7); NEUTROPHILS % (AUTO) 63.1 % (40.0-70.0); PLATELET COUNT (AUTO) 307 K/uL (130-430); RED BLOOD CELL COUNT(AUTO) 2.77 MIL/uL (4.2-6.2); RED CELL DISTRIBUTION WIDTH 15.7 % (9.0-15.0); WHITE BLOOD COUNT (AUTO) 6.4 K/uL (4.8-10.8)
[2017-04-09 07:25] LABS: HEMATOCRIT 21.6 % (36-48); HEMOGLOBIN 6.8 g/dL (12.0-16.0)
[2017-04-09 07:34] LABS: ANION GAP 7 (5-15); CHLORIDE 113 mmol/L (98-107); CREATININE 1.16 mg/dL (0.55-1.30); GLUCOSE 96 mg/dL (70-99); POTASSIUM 4.1 mmol/L (3.5-5.1); SODIUM SERUM 143 mmol/L (136-145); UREA NITROGEN, BLOOD 13 mg/dL (8-21)
[2017-04-09 07:57] LABS: PHOSPHORUS 2.5 mg/dL (2.7-4.5)
[2017-04-09 08:00] VITALS: BP_SYST 132
[2017-04-09] MEDS ORDERED: BARIUM SULFATE 135 ML SUSP.RECON (E-Z-HD) PO ONE (09:23)
[2017-04-09] MEDS ORDERED: ACETAMINOPHEN 325 MG TABLET PO ONE (10:30)
[2017-04-09] MEDS ORDERED: LORATADINE 10 MG TABLET PO ONE (10:30)
[2017-04-09 12:37] VITALS: BP_SYST 140
[2017-04-09] MEDS: PANTOPRAZOLE SODIUM 40 MG/VIAL (PROTONIX) IVP SCH ×2 (12:50→21:00)
[2017-04-09] MEDS: LACTULOSE 20 GM/30 ML UDC PO SCH ×2 (12:50→21:00)
[2017-04-09] MEDS: DOCUSATE SODIUM 250 MG CAPSULE PO SCH ×2 (12:51→21:00)
[2017-04-09 15:26] VITALS: BP_SYST 125
[2017-04-09 20:48] VITALS: BP_SYST 125
[2017-04-09] MEDS: BENAZEPRIL HCL 20 MG TABLET (LOTENSIN) PO SCH (21:00)
[2017-04-09] MEDS: CITALOPRAM HYDROBROMIDE 20 MG TABLET PO SCH (21:00)
[2017-04-09] MEDS: ZONISAMIDE 100 MG CAPSULE PO SCH (21:00)
[2017-04-10 00:52] VITALS: BP_SYST 121
[2017-04-10 08:00] VITALS: BP_SYST 140
[2017-04-10 08:13] LABS: ANION GAP 6 (5-15); CALCIUM 8.2 mg/dL (8.4-11.0); CHLORIDE 111 mmol/L (98-107); CREATININE 1.01 mg/dL (0.55-1.30); GLUCOSE 86 mg/dL (70-99); POTASSIUM 3.8 mmol/L (3.5-5.1); SODIUM SERUM 139 mmol/L (136-145); UREA NITROGEN, BLOOD 8 mg/dL (8-21)
[2017-04-10 08:17] LABS: HEMATOCRIT 33.5 % (36-48); HEMOGLOBIN 11.5 g/dL (12.0-16.0); MEAN CORPUSCULAR HEMOGLOBIN 27 pg (27-31); MEAN CORPUSCULAR HGB CONC 34 % (32-36); MEAN CORPUSCULAR VOLUME 79 fL (79.0-98.0); PLATELET COUNT (AUTO) 202 K/uL (130-430); RED BLOOD CELL COUNT(AUTO) 4.26 MIL/uL (4.2-6.2); RED CELL DISTRIBUTION WIDTH 15.7 % (9.0-15.0)
[2017-04-10 08:21] LABS: WHITE BLOOD COUNT (AUTO) 8.8 K/uL (4.8-10.8)
[2017-04-10] MEDS: PANTOPRAZOLE SODIUM 40 MG/VIAL (PROTONIX) IVP SCH ×2 (08:48→21:26)
[2017-04-10 11:19] LABS: ATYPICAL LYMPHOCYTES % 0 % (0-0); BAND % (MANUAL) 0 % (0-6); BASOPHILS % (MANUAL) 0 % (0-2); EOSINOPHILS % (MANUAL) 7 % (0-7); LYMPHOCYTES % (MANUAL) 18 % (20-46); MONOCYTES % (MANUAL) 9 % (0-11)
[2017-04-10] MEDS ORDERED: BARIUM SULFATE 135 ML SUSP.RECON (E-Z-HD) PO ONE (12:46)
[2017-04-10 13:13] VITALS: BP_SYST 140
[2017-04-10] MEDS: LACTULOSE 20 GM/30 ML UDC PO SCH ×2 (15:49→21:26)
[2017-04-10] MEDS: DOCUSATE SODIUM 250 MG CAPSULE PO SCH ×2 (15:49→21:27)
[2017-04-10] MEDS: D5NS 1,000 ML IV SCH (15:49)
[2017-04-10 16:23] VITALS: BP_SYST 145
[2017-04-10 21:00] VITALS: BP_SYST 150
[2017-04-10] MEDS: CITALOPRAM HYDROBROMIDE 20 MG TABLET PO SCH (21:26)
[2017-04-10] MEDS: ZONISAMIDE 100 MG CAPSULE PO SCH (21:27)
[2017-04-10] MEDS: BENAZEPRIL HCL 20 MG TABLET (LOTENSIN) PO SCH (21:27)
[2017-04-10 23:49] VITALS: BP_SYST 127
[2017-04-11 06:52] LABS: HEMATOCRIT 32.9 % (36-48); HEMOGLOBIN 10.4 g/dL (12.0-16.0); MEAN CORPUSCULAR HEMOGLOBIN 25 pg (27-31); MEAN CORPUSCULAR HGB CONC 32 % (32-36); MEAN CORPUSCULAR VOLUME 80 fL (79.0-98.0); PLATELET COUNT (AUTO) 232 K/uL (130-430); RED BLOOD CELL COUNT(AUTO) 4.12 MIL/uL (4.2-6.2); RED CELL DISTRIBUTION WIDTH 15.8 % (9.0-15.0); WHITE BLOOD COUNT (AUTO) 7.3 K/uL (4.8-10.8)
[2017-04-11 07:52] VITALS: BP_SYST 145
[2017-04-11 08:23] LABS: ALANINE AMINOTRANSFERASE 17 U/L (12-78); ALBUMIN 2.7 g/dL (3.4-4.8); ANION GAP 9 (5-15); ASPARTATE AMINOTRANSFERASE 21 U/L (10-37); CALCIUM 8.4 mg/dL (8.4-11.0); CHLORIDE 110 mmol/L (98-107); CREATININE 0.99 mg/dL (0.55-1.30); GLUCOSE 83 mg/dL (70-99); POTASSIUM 3.6 mmol/L (3.5-5.1); SODIUM SERUM 139 mmol/L (136-145); TOTAL BILIRUBIN 0.5 mg/dL (0.0-1.0); UREA NITROGEN, BLOOD 7 mg/dL (8-21)
[2017-04-11] MEDS: D5NS 1,000 ML IV SCH ×3 (08:30→18:11)
[2017-04-11] MEDS: DOCUSATE SODIUM 250 MG CAPSULE PO SCH (08:52)
[2017-04-11] MEDS: LACTULOSE 20 GM/30 ML UDC PO SCH (08:53)
[2017-04-11] MEDS: PANTOPRAZOLE SODIUM 40 MG/VIAL (PROTONIX) IVP SCH (10:09)
[2017-04-11 10:17] LABS: BAND % (MANUAL) 0 % (0-6); BASOPHILS % (MANUAL) 0 % (0-2); EOSINOPHILS % (MANUAL) 3 % (0-7); LYMPHOCYTES % (MANUAL) 15 % (20-46); MONOCYTES % (MANUAL) 3 % (0-11)
[2017-04-11] MEDS ORDERED: DIPHENHYDRAMINE HCL 25 MG CAPSULE PO PRN (11:45)
[2017-04-11] MEDS ORDERED: DIPHENHYDRAMINE INJ 50 MG/ML VIAL IVP PRN (11:45)
[2017-04-11 12:54] VITALS: BP_SYST 139
[2017-04-11 16:30] VITALS: BP_SYST 139
[2017-04-11 19:16] VITALS: BP_SYST 132
== END 2017-04-11 20:45 | disposition home or self-care (01) | DRG 393 ==
LOC: SED 21:15 → SMU 23:26
PROVIDERS: ADMIT Internal Medicine Hospice and Palliative Medicine; ATTEND Internal Medicine Hospice and Palliative Medicine
PROC: 0DJ08ZZ Inspection of Upper Intestinal Tract, Via Natural or Artificial Opening Endoscopic (ICD-10-PCS; principal; 2017-04-08)
PROC: 0DJD8ZZ Inspection of Lower Intestinal Tract, Via Natural or Artificial Opening Endoscopic (ICD-10-PCS; 2017-04-08)
PROC: 30233N1 Transfusion of Nonautologous Red Blood Cells into Peripheral Vein, Percutaneous Approach (ICD-10-PCS; 2017-04-09)
DX: K40.90 Unilateral inguinal hernia, without obstruction or gangrene, not specified as recurrent (principal); K57.31 Diverticulosis of large intestine without perforation or abscess with bleeding; E44.0 Moderate protein-calorie malnutrition; I67.1 Cerebral aneurysm, nonruptured; G62.9 Polyneuropathy, unspecified; G90.9 Disorder of the autonomic nervous system, unspecified; D63.8 Anemia in other chronic diseases classified elsewhere; Z88.9 Allergy status to unspecified drugs, medicaments and biological substances; G40.909 Epilepsy, unspecified, not intractable, without status epilepticus; I10 Essential (primary) hypertension; K21.9 Gastro-esophageal reflux disease without esophagitis; K43.9 Ventral hernia without obstruction or gangrene; K56.41 Fecal impaction; K64.8 Other hemorrhoids; K57.90 Diverticulosis of intestine, part unspecified, without perforation or abscess without bleeding; Z53.9 Procedure and treatment not carried out, unspecified reason; Z68.24 Body mass index [BMI] 24.0-24.9, adult
CPT/HCPCS: 36415; 43235; 45378; 71045; 74018; 74021; 74245-TC; 74270-TC; 80048; 80053; 82728; 83540-TC; 83550-TC; 83735-TC; 83880; 84100-TC; 85007; 85025; 85027; 85610-TC; 85730-TC; 86886; 86900; 86901; 86920; 96360; 97110-GP; 97116-GP; 97530-GP; 99285; C9113; J1200; J2250; J3010; J7030; J7042; J7050; P9021; Q9963

== ENCOUNTER 2018-07-13 11:34 | Emergency (ER) | payer OTHER ==
[~2018-07-13] VITALS: Ht 167.6 cm; Wt 65.8 kg
[~2018-07-13 11:34] MED LIST changes: -BENA20TA2 PO; +BENA20TA9 PO; -CEL20 PO; -MYCOLOG30 TP; -ZOLP5TAB2 PO; -ZONI100C16 PO; +ZONI100C42 PO
[2018-07-13 11:35] VITALS: BP_SYST 145
[2018-07-13 13:38] LABS: BASOPHILS % (AUTO) 0.3 % (0.0-2.0); EOSINOPHILS # (AUTO) 0.3 K/uL (0.0-0.4); EOSINOPHILS % (AUTO) 4.4 % (0.0-4.0); HEMATOCRIT 39.2 % (36-48); HEMOGLOBIN 12.8 g/dL (12.0-16.0); LYMPHOCYTES # (AUTO) 1.5 K/uL (1.0-5.5); LYMPHOCYTES % (AUTO) 19.8 % (20.5-51.5); MEAN CORPUSCULAR HEMOGLOBIN 31 pg (27-31); MEAN CORPUSCULAR HGB CONC 33 % (32-36); MEAN CORPUSCULAR VOLUME 95 fL (79.0-98.0); MONOCYTES # (AUTO) 0.7 K/uL (0.0-1.0); MONOCYTES % (AUTO) 8.7 % (1.7-9.3); NEUTROPHILS # (AUTO) 5.1 K/uL (1.8-7.7); NEUTROPHILS % (AUTO) 66.8 % (40.0-70.0); PLATELET COUNT (AUTO) 243 K/uL (130-430); RED BLOOD CELL COUNT(AUTO) 4.13 MIL/uL (4.2-6.2); RED CELL DISTRIBUTION WIDTH 13.3 % (9.0-15.0); WHITE BLOOD COUNT (AUTO) 7.6 K/uL (4.8-10.8)
[2018-07-13 13:46] LABS: ANION GAP 8 (5-15); CALCIUM 9.8 mg/dL (8.4-11.0); CHLORIDE 103 mmol/L (98-107); CREATININE 1.34 mg/dL (0.55-1.30); GLUCOSE 84 mg/dL (70-99); POTASSIUM 4.8 mmol/L (3.5-5.1); SODIUM SERUM 135 mmol/L (136-145); UREA NITROGEN, BLOOD 27 mg/dL (8-21)
[2018-07-13 13:50] LABS: ALANINE AMINOTRANSFERASE 20 U/L (12-78); ALBUMIN 3.6 g/dL (3.4-4.8); ASPARTATE AMINOTRANSFERASE 18 U/L (10-37); LIPASE 128 U/L (73-393); TOTAL BILIRUBIN 0.5 mg/dL (0.0-1.0)
[2018-07-13] MEDS ORDERED: MAGNESIUM CITRATE 300 ML ORAL SOLUTION PO ONE (15:00)
[2018-07-13 16:00] VITALS: BP_SYST 130
== END 2018-07-13 16:00 | disposition home or self-care (01) ==
LOC: SED 11:34
DX: K44.9 Diaphragmatic hernia without obstruction or gangrene (principal); K59.00 Constipation, unspecified; F03.90 Unspecified dementia, unspecified severity, without behavioral disturbance, psychotic disturbance, mood disturbance, and anxiety; I10 Essential (primary) hypertension; Z86.73 Personal history of transient ischemic attack (TIA), and cerebral infarction without residual deficits; Z88.8 Allergy status to other drugs, medicaments and biological substances; Z79.899 Other long term (current) drug therapy
CPT/HCPCS: 36415; 71045; 80053; 83605; 83690-TC; 85025; 85610-TC; 87040-TC; 93005; 99284